=== PATIENT | male | born 1955 | race Hispanic/Latino ===

== ENCOUNTER 2018-02-15 16:05 | Observation (INO) | payer BC ==
[2018-02-15 16:49] LABS: Absolute Lymphocytes (CBC) 2.9 K/uL (0.7-4.9); Absolute Monocytes 0.7 K/uL (0.1-1.3); Absolute Neutrophil 5.5 K/uL (1.8-8.0); Basophils % 0.4 % (0-1.3); Eosinophils % 4.8 % (0-4.4); Hematocrit 42.1 % (39.6-49.0); Lymphocytes % 30.5 % (15.3-44.8); MCH 27.9 pg (27.0-35.0); MCV 84.6 fL (80-100); MPV 7.7 fL (7.6-11.3); Monocytes % 6.9 % (3.3-12.3); RBC Red Blood Cell Count 4.97 M/uL (4.33-5.43)
[2018-02-15 16:51] LABS: Protime INR 0.98
--- NOTE | 2018-02-15 16:54 | RAD REPORT ---
EXAM DESCRIPTION: Jodie Single View02/15/2018 4:47 pm CLINICAL HISTORY: Chest pain COMPARISON: none FINDINGS: The lungs appear clear of acute infiltrate. The heart is normal size IMPRESSION: No acute abnormalities displayed
[2018-02-15 16:59] LABS: Bicarbonate 28 mEq/L (21-31); Glucose Level 212 mg/dL (65-120); Sodium Level 138 mEq/L (135-145)
[2018-02-15 17:06] LABS: ALT/SGPT 24 IU/L (10-60); AST/SGOT 24 IU/L (10-42); Alkaline Phosphatase 64 IU/L (42-121); BUN Blood Urea Nitrogen 11 mg/dL (6-20); Bilirubin Direct 0.1 mg/dL (0-0.2); Bilirubin Total 0.5 mg/dL (0.3-1.2); Glomerular Filtration Rate > 90 mL/min (=/>90); Magnesium 1.9 mg/dL (1.8-2.5); Protein, Total 7.3 g/dL (6.0-8.3)
--- NOTE | 2018-02-15 17:39 | EDPHYS ---
Physician Documentation [facility] Name: Sal Edmonds Age: 63 yrs Sex: Male : 1955 Arrival Date: 02/15/2018 Time: 16:07 Bed 27 Private MD: ED Physician Ravindra Mcgovern HPI: 02/15 16:39 This 63 yrs old Male presents to ER via Wheelchair with complaints of Chest jr8 Pain, Back Pain, Numbness Of Arm. 16:39 The patient or guardian reports chest pain that is located primarily in the substernal jr8 area. Onset: acutely, yesterday. The pain radiates to the left arm. Associated signs and symptoms: Pertinent positives: nausea. The chest pain is described as a heaviness. Duration: The patient or guardian reports multiple episodes. Modifying factors: The symptoms are alleviated by nothing. the symptoms are aggravated by nothing. Severity of pain: At its worst the pain was moderate in the emergency department the pain has improved mildly. The patient has experienced a previous episode. The patient has not recently seen a physician. Historical: - Allergies: 16:12 No Known Allergies; la1 - Home Meds: 17:21 glimepiride 4 mg Oral tab [Active]; atorvastatin 10 mg oral tab once daily [Active]; tl3 metformin 1,000 mg Oral tab 1 tab 2 times per day [Active]; lisinopril 10 mg Oral tab 1 tab once daily [Active]; - PMHx: 16:12 Diabetes - NIDDM; la1 - Immunization history:: Adult Immunizations up to date. - Social history:: Smoking status: Patient/guardian denies using tobacco. ROS: 16:39 Eyes: Negative for injury, pain, redness, and discharge, ENT: Negative for injury, jr8 pain, and discharge, Neck: Negative for injury, pain, and swelling, Respiratory: Negative for shortness of breath, cough, wheezing, and pleuritic chest pain, Back: Negative for injury and pain, MS/Extremity: Negative for injury and deformity, Skin: Negative for injury, rash, and discoloration, Neuro: Negative for headache, weakness, numbness, tingling, and seizure. 16:39 Cardiovascular: Positive for chest pain, Negative for edema, orthopnea, palpitations, paroxysmal nocturnal dyspnea. 16:39 Abdomen/GI: Positive for nausea, Negative for abdominal pain, vomiting, diarrhea, constipation, abdominal cramps, abdominal distension, anorexia, dysphagia, hematemesis, black/tarry stool, rectal pain, rectal bleeding, bowel incontinence, flatulence. Exam: 16:39 Head/Face: Normocephalic, atraumatic. Eyes: Pupils equal round and reactive to light, jr8 extra-ocular motions intact. Lids and lashes normal. Conjunctiva and sclera are non-icteric and not injected. Cornea within normal limits. Periorbital areas with no swelling, redness, or edema. ENT: Nares patent. No nasal discharge, no septal abnormalities noted. Tympanic membranes are normal and external auditory canals are clear. Oropharynx with no redness, swelling, or masses, exudates, or evidence of obstruction, uvula midline. Mucous membranes moist. Neck: Trachea midline, no thyromegaly or masses palpated, and no cervical lymphadenopathy. Supple, full range of motion without nuchal rigidity, or vertebral point tenderness. No Meningismus. Chest/axilla: Normal chest wall appearance and motion. Nontender with no deformity. No lesions are appreciated. Cardiovascular: Regular rate and rhythm with a normal S1 and S2. No gallops, murmurs, or rubs. Normal PMI, no JVD. No pulse deficits. Respiratory: Lungs have equal breath sounds bilaterally, clear to auscultation and percussion. No rales, rhonchi or wheezes noted. No increased work of breathing, no retractions or nasal flaring. Abdomen/GI: Soft, non-tender, with normal bowel sounds. No distension or tympany. No guarding or rebound. No evidence of tenderness throughout. Back: No spinal tenderness. No costovertebral tenderness. Full range of motion. Skin: Warm, dry with normal turgor. Normal color with no rashes, no lesions, and no evidence of cellulitis. MS/ Extremity: Pulses equal, no cyanosis. Neurovascular intact. Full, normal range of motion. Neuro: Awake and alert, GCS 15, oriented to person, place, time, and situation. Cranial nerves II-XII grossly intact. Motor strength 5/5 in all extremities. Sensory grossly intact. Cerebellar exam normal. Normal gait. Vital Signs: 16:12 BP 139 / 68; Pulse 79; Resp 16; Temp 98.1; Pulse Ox 100% on R/A; Weight 108.86 kg; la1 Height 5 ft. 6 in. (167.64 cm); 16:39 BP 100 / 87; Pulse 83; Resp 16; Pulse Ox 95% on R/A; tl3 17:00 BP 143 / 53; Pulse 78; Resp 18; Pulse Ox 96% on R/A; tl3 17:45 BP 134 / 57; Pulse 77; Resp 16; Pulse Ox 96% ; tl3 17:45 BP 132 / 82; Pulse 73; Resp 18; Pulse Ox 96% ; tl3 16:12 Body Mass Index 38.74 (108.86 kg, 167.64 cm) la1 MDM: 16:14 Patient medically screened. jr8 16:39 HEART Score: History: Moderately Suspicious (1), ECG: Normal (0), Age: > 45 and < 65 jr8 years (1), Risk Factors: > or = 3 Risk factors for atherosclerotic disease (2), [Hypercholesterolemia] [Hypertension] [DM] [Obesity] Troponin: < or = 1 x Normal Limit (0). The patient was given aspirin in the Emergency Department. 17:36 Data reviewed: vital signs, nurses notes, lab test result(s), EKG, radiologic studies, jr8 plain films, and as a result, I will admit patient. Counseling: I had a detailed discussion with the patient and/or guardian regarding: the historical points, exam findings, and any diagnostic results supporting the discharge/admit diagnosis, lab results, radiology results, the need for further work-up and treatment in the hospital. 17:38 Physician consultation: Esther Ortega MD was called at 17:38, was contacted at 17:38, jr8 regarding admission, to the telemetry unit. and will see patient in ED. 02/15 16:15 Order name: Basic Metabolic Panel; Complete Time: 17:02/15 16:15 Order name: BNP; Complete Time: 17:10 02/15 16:15 Order name: CBC with Diff; Complete Time: 17:00 02/15 16:15 Order name: LFT's; Complete Time: 17:07 02/15 16:15 Order name: Magnesium; Complete Time: 17:02/15 16:15 Order name: PT-INR; Complete Time: 17:00 02/15 16:15 Order name: Troponin (emerg Dept Use Only); Complete Time: 17:07 8 02/15 16:15 Order name: XRAY Chest (1 view); Complete Time: 16:57 8 02/15 16:15 Order name: EKG; Complete Time: 16:15 8 02/15 16:15 Order name: Cardiac monitoring; Complete Time: 16:30 [facility] 02/15 16:15 Order name: EKG - Nurse/Tech; Complete Time: 16:30 [facility] 02/15 21:41 Order name: Troponin I; Complete Time: 21:43 [facility] 02/15 16:15 Order name: IV Saline Lock; Complete Time: 16:30 8 02/15 16:15 Order name: Labs collected and sent; Complete Time: 16:30 [facility] 02/15 16:15 Order name: O2 Per Protocol; Complete Time: 16:30 8 02/15 16:15 Order name: O2 Sat Monitoring; Complete Time: 16:30 jr8 Administered Medications: 17:25 Drug: Aspirin Chewable Tablet 324 mg Route: PO; tl3 18:55 Follow up: Response: No adverse reaction tl3 18:10 Drug: fentaNYL (PF) 50 mcg Route: IVP; Infused Over: 3 mins; Site: right antecubital; tl3 18:55 Follow up: Response: No adverse reaction; Pain is decreased tl3 Disposition: 02/15/18 17:39 Hospitalization ordered by Esther Ortega for Observation. Preliminary diagnosis is Chest pain, unspecified. - Bed requested for Telemetry/MedSurg (observation). - Status is Observation. tl3 - Condition is Stable. - Problem is new. - Symptoms are unchanged. UTI on Admission? No Addendum: 03/21/2018 19:41 Co-signature as Attending Physician, Ravindra Mcgovern MD I agree with the assessment and k dr plan of care. Signatures: Dispatcher [employer] [facility] Ravindra Mcgovern MD MD kdr Juliana Saunders, RN Sanjeev Velasquez PA PA jr8 Zechariah Wynne RN RN laSuri Lentz RN RN tl3 Corrections: (The following items were deleted from the chart) 02/15 17:37 16:39 HEART Score: History: Moderately Suspicious (1), ECG: Normal (0), Age: > 45 and < jr8 65 years (1), Risk Factors: > or = 3 Risk factors for atherosclerotic disease (2), [Hypercholesterolemia] [Hypertension] [DM] [Obesity] jr8 18:27 17:39 Hospitalization Ordered by Esther Ortega MD for Observation. Preliminary diagnosis iw is Chest pain, unspecified. Bed requested for Telemetry/MedSurg (observation). Status is Observation. Condition is Stable. Problem is new. Symptoms are unchanged. UTI on Admission? No. jr8 21:56 18:27 02/15/2018 17:39 Hospitalization Ordered by Esther Ortega MD for Observation. tl3 Preliminary diagnosis is Chest pain, unspecified. Bed requested for Telemetry/MedSurg (observation). Status is Observation. Condition is Stable. Problem is new. Symptoms are unchanged. UTI on Admission? No. iw
--- NOTE | 2018-02-15 17:39 | ER ---
Nurse's Notes [facility] Name: Sal Edmonds Age: 63 yrs Sex: Male : 1955 Arrival Date: 02/15/2018 Time: 16:07 Bed 27 Private MD: Diagnosis: Chest pain, unspecified Presentation: 02/15 16:11 Presenting complaint: Patient states: I had a pain in my left shoulder that started la1 last night around 2200 and has come around to the front of my chest over time, about an hour and a half ago my left arm "fell asleep". No acute necrological deficits noted. Transition of care: patient was not received from another setting of care. Onset of symptoms was February 15, 2018. Care prior to arrival: None. 16:11 Method Of Arrival: Wheelchair la1 16:11 Acuity: CHEVY 3 la1 Historical: - Allergies: 16:12 No Known Allergies; la1 - Home Meds: 17:21 glimepiride 4 mg Oral tab [Active]; atorvastatin 10 mg oral tab once daily [Active]; tl3 metformin 1,000 mg Oral tab 1 tab 2 times per day [Active]; lisinopril 10 mg Oral tab 1 tab once daily [Active]; - PMHx: 16:12 Diabetes - NIDDM; la1 - Immunization history:: Adult Immunizations up to date. - Social history:: Smoking status: Patient/guardian denies using tobacco. Screenin:39 Abuse screen: Denies threats or abuse. Nutritional screening: No deficits noted. tl3 Tuberculosis screening: No symptoms or risk factors identified. Fall Risk None identified. Assessment: 16:39 General: Appears uncomfortable, well groomed, well developed, well nourished, Behavior tl3 is calm, cooperative, appropriate for age. Pain: Complains of pain in chest, left arm Pain radiates to across chest to arm. Pain: Pain began 1 day ago. Neuro: Oriented to person, place, time, situation, Appropriate for age. Cardiovascular: Heart tones S1 S2 present Capillary refill < 3 seconds in bilateral fingers Rhythm is regular. Respiratory: Airway is patent Respiratory effort is even, unlabored, Breath sounds are clear bilaterally. GI: No signs and/or symptoms were reported involving the gastrointestinal system. : No signs and/or symptoms were reported regarding the genitourinary system. EENT: No signs and/or symptoms were reported regarding the EENT system. Derm: No signs and/or symptoms reported regarding the dermatologic system. 18:00 Reassessment: Patient appears in no apparent distress at this time. No changes from tl3 previously documented assessment. Patient and/or family updated on plan of care and expected duration. Pain level reassessed. Patient is alert, oriented x 3, equal unlabored respirations, skin warm/dry/pink. family at bedside, no c/o pain at this time. 19:17 Reassessment: Patient appears in no apparent distress at this time. No changes from tl3 previously documented assessment. Patient and/or family updated on plan of care and expected duration. Pain level reassessed. Patient is alert, oriented x 3, equal unlabored respirations, skin warm/dry/pink. Vital Signs: 16:12 BP 139 / 68; Pulse 79; Resp 16; Temp 98.1; Pulse Ox 100% on R/A; Weight 108.86 kg; la1 Height 5 ft. 6 in. (167.64 cm); 16:39 BP 100 / 87; Pulse 83; Resp 16; Pulse Ox 95% on R/A; tl3 17:00 BP 143 / 53; Pulse 78; Resp 18; Pulse Ox 96% on R/A; tl3 17:45 BP 134 / 57; Pulse 77; Resp 16; Pulse Ox 96% ; tl3 17:45 BP 132 / 82; Pulse 73; Resp 18; Pulse Ox 96% ; tl3 16:12 Body Mass Index 38.74 (108.86 kg, 167.64 cm) la1 ED Course: 16:07 Patient arrived in ED. as 16:12 Triage completed. la1 16:13 Arm band placed on left wrist. la1 16:14 Sanjeev Craig PA is PHCP. jr8 16:14 Ravindra Mcgovern MD is Attending Physician. jr8 16:16 Suri Cevallos, JENNIFER is Primary Nurse. tl3 16:30 EKG done, by ED staff, reviewed by Sanjeev LYN. jb1 16:39 No apparent distress. tl3 16:39 Patient has correct armband on for positive identification. Placed in gown. Bed in low tl3 position. Call light in reach. Side rails up X2. Adult w/ patient. youth nutritional monitor on. Pulse ox on. NIBP on. Door closed. Warm blanket given. 16:39 No provider procedures requiring assistance completed. Initial lab(s) drawn, by me, tl3 sent to lab. Inserted saline lock: 22 gauge in right antecubital area, using aseptic technique. Blood collected. Patient maintains SpO2 saturation greater than 95% on room air. 16:46 X-ray completed. Portable x-ray completed in exam room. Patient tolerated procedure la2 well. 16:47 XRAY Chest (1 view) In Process Unspecified. EDMS 17:39 Esther Ortega MD is Hospitalizing Provider. jr8 Administered Medications: 17:25 Drug: Aspirin Chewable Tablet 324 mg Route: PO; tl3 18:55 Follow up: Response: No adverse reaction tl3 18:10 Drug: fentaNYL (PF) 50 mcg Route: IVP; Infused Over: 3 mins; Site: right antecubital; tl3 18:55 Follow up: Response: No adverse reaction; Pain is decreased tl3 Outcome: 17:39 Decision to Hospitalize by Provider. jr8 21:56 Patient left the ED. tl3 Signatures: Dispatcher [employer] EDMS Aaron Collazo jbMelanie Nazario Josh, PA PA jr8 Zechariah Wynne, RN RN la1 Rebeca Monterroso la2 Suri Cevallos, RN RN tl3
[2018-02-15] MEDS ORDERED: ASPIRIN 81 MG CHEWABLE TABLET ONE (17:43)
[2018-02-15] MEDS ORDERED: NITROGLYCERIN 0.4 MG/TAB SL PRN (17:44)
[2018-02-15] MEDS ORDERED: MORPHINE 4 MG/ML SYR IV PRN (17:44)
[2018-02-15] MEDS ORDERED: ACETAMINOPHEN 500 MG TAB PO PRN (17:44)
[2018-02-15] MEDS ORDERED: ENOXAPARIN 40 MG/0.4 ML SQ SCH (18:00)
[2018-02-15] MEDS ORDERED: FENTANYL CITR 100 MCG/2 ML ONE (18:40)
[2018-02-15] MEDS ORDERED: ATORVASTATIN 40 MG TAB PO SCH (21:00)
[2018-02-15 21:12] VITALS: BMI 40.6
[2018-02-15] MEDS: METOPROLOL TAR 25 MG TAB PO SCH (21:54)
--- NOTE | 2018-02-15 22:05 | HP ---
Date of Admission: 02/15/2018 Chief Complaint: Chest pain. Primary Care Physician: Ramses Barron MD Code Status: Full. History Of Present Illness: The patient is a 63-year-old male with past medical history of diabetes, hypertension, hyperlipidemia, who was in his usual state of health until day prior to admission when the patient had sudden onset of substernal chest pain which was at rest, moderate, radiating to the left arm, lasted for a few seconds, associated with some nausea but no vomiting. The patient denies any palpitations or shortness of breath. The patient had recurrence of his pain this morning, which became more intense and did not dissipate. The patient tried heating pad, which did not improve his condition. Due to worsening symptoms, the patient came into the ER for further evaluation. No allev iating or aggravating factors. Upon arrival to the ER, his vital signs were stable. He was afebrile . The patient's workup revealed negative troponin level and EKG showed some PACs. The patient was t hen given aspirin, which helped alleviate his pain. The patient was referred for admission. When se en in the ER, the patient was awake, alert, oriented x3, in some mild distress. Past Medical History: Hypertension; hyperlipidemia; diabetes mellitus type 2, non-insulin dependent; obesity. Past Surgical History: Knee surgery on the left in 1982. Allergies: NO KNOWN DRUG ALLERGIES. Medications: Lisinopril 10 mg, glimepiride 4 mg HR, atorvastatin 10 mg, metformin 1 g b.i.d. Family History: Denies any history of premature coronary artery disease in the family. Social History: The patient was a heavy smoker in the past, smoked 1 pack per week for 15 years. Qu it in 2002. The patient drinks occasionally 1-2 beers a month on average. No illicit drug use. The patient is , has good social support. Independent in his activities of daily living. He wor ks driving a forklift. Review of Systems: 11-point system reviewed, negative except as per HPI. Physical Examination: Vital Signs: Blood pressure 139/68, pulse 79, respirations 16, temperature 98.1, pulse ox 100% on ro om air. General: Awake, alert, oriented x3. Some mild distress due to pain. Elderly male, somewhat ill shweta earing. HEENT: Normocephalic, atraumatic. PERRLA. EOMI. Moist mucous membranes. Oropharynx is clear. No rmal dentition. Conjunctiva anicteric. Neck: Supple. No JVD. Trachea midline. CV: S1, S2. Regular rate and rhythm. Peripheral pulses are present bilaterally. No murmurs. Respiratory: Clear to auscultation bilaterally. No wheezing. No stridor. No use of accessory musc les. Gastrointestinal: Abdomen is soft, nontender, nondistended. Positive bowel sounds. No guarding or rigidity. Extremities: No clubbing, cyanosis, or edema. No calf tenderness. Neurologic: Cranial nerves 2 through 12 intact grossly, 5/5 strength bilateral upper and lower extre mities. Sensation intact to light touch. Speech is normal. Skin: No rashes. Normal skin turgor. Psych: Mood is somewhat anxious. Affect is full. Insight and judgment are good. Laboratory Data: Sodium 138, potassium 4, chloride 105, CO2 of 28. BUN 11, creatinine 0.76, glucose 212, calcium 9.4, magnesium 1.9. Troponin less than 0.03. BNP 14. WBC 9.6, H and H 13.9 and 42.1, platelets 384. INR 0.98. Diagnostic Data: Chest x-ray shows no acute abnormalities. Assessment And Plan: A 63-year-old male with; 1.Chest pain, rule out acute coronary syndrome. We will start on chest pain guidelines. Obtain ser ial cardiac enzymes and EKG. We will consult Cardiology. We will obtain echocardiogram. 2.Obesity. 3.Diabetes mellitus type 2, non-insulin dependent. We will start on sliding scale insulin and check hemoglobin A1c. 4.Essential hypertension. Resume home medications. 5.Hyperlipidemia. 6.We will check lipid panel and continue on statin. 7.Gastrointestinal and deep venous thrombosis prophylaxis with PPI and Lovenox. Plan: Admit patient to Med-Surg, [facility] as observation. CHARLIE Voice ID: [id number]
[2018-02-15 23:15] LABS: Urine Appearance CLEAR; Urine Bilirubin NEGATIVE (NEG); Urine Blood NEGATIVE (NEG); Urine Color YELLOW; Urine Glucose NEGATIVE (NEG); Urine Protein NEGATIVE (NEG); Urine Urobilinogen 0.2 mg/dL (0.2-1.0)
[2018-02-15 23:16] LABS: Urine Microscopic Reflex NO UMIC
[2018-02-16 02:25] LABS: Absolute Monocytes 0.9 K/uL (0.1-1.3); Absolute Neutrophil 5.5 K/uL (1.8-8.0); Basophils % 0.4 % (0-1.3); Eosinophils % 4.3 % (0-4.4); Hematocrit 39.8 % (39.6-49.0); Lymphocytes % 36.4 % (15.3-44.8); MCH 28.2 pg (27.0-35.0); MCV 83.8 fL (80-100); MPV 7.7 fL (7.6-11.3); Monocytes % 8.1 % (3.3-12.3); RBC Red Blood Cell Count 4.75 M/uL (4.33-5.43)
[2018-02-16 02:32] LABS: BUN Blood Urea Nitrogen 15 mg/dL (6-20); Bicarbonate 27 mEq/L (21-31); Glomerular Filtration Rate > 90 mL/min (=/>90); Glucose Level 207 mg/dL (65-120); Potassium 3.8 mEq/L (3.6-5.0); Sodium Level 136 mEq/L (135-145)
--- NOTE | 2018-02-16 07:08 | EKG ---
Test Date: 2018-02-15 Test Time: 16:27:07 Student Services Director: CHERIE MEASUREMENT RESULTS: Intervals: Rate: 76 MS: 158 QRSD: 102 QT: 382 QTc: 429 Browning: P: 19 MS: 158 QRS: -19 T: 30 INTERPRETIVE STATEMENTS: Sinus rhythm with premature atrial complexes Otherwise normal ECG No previous ECG available for comparison Electronically Signed On 02-16-18 07:07:36 CDT by Angel Benjamin
[2018-02-16] MEDS ORDERED: D50W 25 GM/50 ML SYRINGE IV PRN (07:57)
[2018-02-16] MEDS ORDERED: GLUCAGON 1 MG/VIAL IM PRN (07:57)
[2018-02-16] MEDS: INSULIN -REGULAR HUMAN 50 UNIT/0.5 ML ML SQ SCH ×4 (07:57→20:42)
[2018-02-16] MEDS: METOPROLOL TAR 25 MG TAB PO SCH ×2 (08:39→20:46)
[2018-02-16] MEDS: ASPIRIN EC 81 MG TAB PO SCH (08:39)
[2018-02-16] MEDS: LISINOPRIL 10 MG TAB PO SCH (08:39)
[2018-02-16] MEDS: GLIMEPIRIDE 2 MG TABLET PO SCH ×2 (08:39→18:07)
[2018-02-16 09:44] LABS: A1c Component 1.09 mg/dL; Hemoglobin A1c 9.4 % (4-6.0)
[2018-02-16] MEDS ORDERED: HEPA 1000U/500MLS 2,000 UNIT/1,000 ML BAG IV ONE (13:25)
[2018-02-16] MEDS ORDERED: LIDOCAINE 1% 20 ML MDV ONE (13:25)
--- NOTE | 2018-02-16 13:26 | CON ---
Chief Complaint: Chest pain. History Of Present Illness: Mr. Cam has been having chest pain since Friday, 2 days ago. It is intermittent, feels like heaviness, pressure in upper part of his chest, some discomfort in the left arm as well. Presently he feels well. Since being in the hospital, he has had a troponin that is n ormal and one that is abnormal at 0.04. He passed a stress test several years ago. Has not had any cardiology follow up since then. He has underlying diabetes, hypertension, and dyslipidemia. Medications: Metformin, lisinopril atorvastatin, and glimepiride. Allergies: HE HAS NO ALLERGIES. Social History: He was a cigarette smoker, but quit in 2002. No history of vascular disease. No hi story of bypass or stents. Physical Examination: General: He is 5 feet 6 inches, 251 pounds. HEENT: Normal. Lungs: Clear. Cardiac: Normal. Abdomen: Soft. Extremities: Normal. No cyanosis, clubbing, or edema. Distal pulses normal. Neurologic: Within normal limits. His electrocardiogram shows premature atrial complexes. Otherwise, it is normal. Impression: Mr. Tutu Edmonds has unstable angina. I have recommended a cardiac cath as the diag nostic test of choice. Of course, we will be ready to put in a stent if he needs it. The patient seems to understand the procedure, its potential benefits, indications, risks, and agrees to proceed. YAHAIRA Voice ID: [id number] Report ID: [id number]
[2018-02-16] MEDS ORDERED: HEPARIN 5000 UNIT/ML 1 ML VIAL ONE (13:41)
[2018-02-16] MEDS ORDERED: NA CHLORIDE 0.9% 500 ML ONE (13:41)
[2018-02-16] MEDS ORDERED: FENTANYL CITR 100 MCG/2 ML ONE (13:42)
[2018-02-16] MEDS ORDERED: NA CHLORIDE 0.9% 50 ML ONE (13:42)
[2018-02-16] MEDS ORDERED: MIDAZOLAM HCL 2 MG/2 ML INJ ONE (13:42)
[2018-02-16] MEDS ORDERED: NICARDIPINE HCL 25 MG/10 ML IV ONE (13:42)
[2018-02-16] MEDS ORDERED: ATROPINE SULF 1 MG/10 ML SYR IV ONE (13:42)
[2018-02-16] MEDS ORDERED: PRASUGREL (EFFIENT) 10 MG TAB ONE (15:14)
--- NOTE | 2018-02-16 15:42 | PN ---
Date of Progress Note: 02/16/2018 Subjective: The patient is seen and examined. Chart reviewed and case discussed with RN and Dr. Julio adams. The patient is going for cardiac catheterization today. He states his chest pain has resolved since yesterday. Review of Systems: Negative except as above. Medications: Reviewed. Physical Examination: Vital Signs: Temperature 97.9, heart rate 71, blood pressure 122/62, respirations 16, O2 95% on room air. General: Awake, alert, oriented, no acute distress. Elderly male, morbidly obese, BMI 40. CV: S1, S2. No murmurs. Regular rate and rhythm. Peripheral pulses present. Respiratory: Clear to auscultation bilaterally. No wheezing. Gastrointestinal: Abdomen is soft, nontender, nondistended. Obese. Positive bowel sounds. Extremities: No clubbing, cyanosis, or edema. Neurologic: Nonfocal. Laboratory Data: Sodium 136, potassium 3.8, chloride 103, CO2 27, BUN 15, creatinine 0.61, glucose 2 07. Hemoglobin A1c 9.4, calcium 9.5. Troponin 0.03, 0.03, 0.04. WBC 10.9, H and H 13.4 and 39.8, p latelets 358. Triglycerides 148, cholesterol 142, LDL 78, HDL 34. UA negative. Assessment And Plan: A 63-year-old male with: 1.Unstable angina. Troponin elevated at 0.04. The patient is going for cardiac catheterization thi s afternoon. Appreciate Dr. Benjamin' input. We will continue chest pain guidelines. 2.Morbid obesity, body mass index 40. 3.Diabetes mellitus type 2 with hyperglycemia, noninsulin dependent. A1c is 9.5%, uncontrolled. 4.Essential hypertension, stable. 5.Hyperlipidemia, on statin. 6.Gastrointestinal and deep venous thrombosis prophylaxis with PPI and Lovenox. SA/MODL Voice ID: [id number] Report ID: [id number]
[2018-02-16] MEDS ORDERED: ATORVASTATIN 80 MG TAB PO SCH (21:00)
--- NOTE | 2018-02-16 22:18 | OP ---
Surgeon: Angel Benjamin MD Procedures: Left heart catheterization, coronary left ventricular angiography, percutaneous coronary interventions, stents in the mid left anterior descending artery and distal left anterior descending artery; all successful without complications. Procedure Findings: The patient has normal ejection fraction. His coronary arteries were significan t for high-grade stenosis in the mid LAD and a 70% stenosis in the distal LAD. The other arteries we re free of disease. His ejection fraction was normal. Left ventricular end-diastolic pressure was n ormal. All of the other pressures we measured were normal. At the end of the stenting procedure, claudia th lesions were less than 0% stenosis. The mid LAD stent was a 2.75 x 16 Synergy. The distal LAD st ent was a 2.75 x 12 Synergy. Residual stenosis 0%. Procedure In Detail: The patient had unstable angina symptoms. His EKG was normal. Troponin was ba rely elevated. We brought him to the cardiac pathology laboratory aides teacher for diagnostic and treatment purposes. He gav e informed consent. He was prepared and draped in the usual sterile fashion. Right radial approach was used. The skin over the right radial artery was anesthetized using 1% lidocaine. The artery was entered using a 21-gauge needle, and a 0.021-inch diameter guidewire was used to cannulate the arter y. This allowed us to place a sheath through these in the modified Seldinger technique. A 6-Kinyarwanda Terumo radial sheath was used. The sheath was flushed. Radial cocktail was given. It consisted of nicardipine, heparin, and nitroglycerin. We were able to guide a TIG catheter into the ascending aor ta. We used a Terumo Glidewire with a short radius J-tip. We used the same catheter to angiogram claudia th coronary arteries and the left ventricle. At the end of the procedure, after reviewing films, it was recommended that we put stents in the LAD artery. We removed the diagnostic catheter over an exc hange length wire and used the same wire to place a guide catheter; an Ikari left 3.5 with side holes . It was directed into the left main ostium and gave good support. The coronary guidewire was a Cou gar 0.014 inch diameter wire, successfully crossed the lesion and was pre-dilated with a 2.5 x 15 Maria Luz rge balloon. We elected to use 2.75 mm diameter stents. We elected to treat both the mid LAD and th e distal LAD. Both stents were deployed at 11 atmospheres. The angiographic result was excellent. There was no evidence of any complication by symptoms or arrhythmia or ST changes, or angiography. E xcellent angiographic result was obtained after we removed all the guidewires. Then, the guiding cat heter was removed over a J-wire. During the stent procedure, he had received Angiomax. The activate d clotting time was demonstrated to be over 350 seconds. During the procedure, Angiomax was turned o ff as soon as we did our final angiogram. The arteriotomy was closed using a TR band once the sheath was removed. There were no complications from the procedure. NO/JOE Voice ID: [id number] Report ID: [id number]
[2018-02-16 22:40] VITALS: O2SAT 93
[2018-02-17 05:22] LABS: Absolute Lymphocytes (CBC) 4.1 K/uL (0.7-4.9); Absolute Neutrophil 5.9 K/uL (1.8-8.0); Basophils % 0.1 % (0-1.3); Eosinophils % 4.5 % (0-4.4); Hematocrit 40.6 % (39.6-49.0); Lymphocytes % 35.7 % (15.3-44.8); MCH 28.1 pg (27.0-35.0); MCV 84.5 fL (80-100); MPV 7.8 fL (7.6-11.3); Monocytes % 8.4 % (3.3-12.3)
[2018-02-17 05:39] LABS: BUN Blood Urea Nitrogen 12 mg/dL (6-20); Bicarbonate 28 mEq/L (21-31); Glomerular Filtration Rate > 90 mL/min (=/>90); Glucose Level 133 mg/dL (65-120); Potassium 3.8 mEq/L (3.6-5.0); Sodium Level 137 mEq/L (135-145)
[2018-02-17] MEDS: INSULIN -REGULAR HUMAN 50 UNIT/0.5 ML ML SQ SCH (07:30)
[2018-02-17] MEDS: GLIMEPIRIDE 2 MG TABLET PO SCH (08:16)
[2018-02-17] MEDS: LISINOPRIL 10 MG TAB PO SCH (08:16)
[2018-02-17] MEDS: ASPIRIN EC 81 MG TAB PO SCH (08:16)
[2018-02-17] MEDS: METOPROLOL TAR 25 MG TAB PO SCH (08:16)
[2018-02-17 08:56] VITALS: BP 162/66; TEMP 97.6
[2018-02-17] MEDS ORDERED: PRASUGREL (EFFIENT) 10 MG TAB PO SCH (09:00)
--- NOTE | 2018-02-17 12:13 | PN ---
Subjective: Mr. Cam had stents in his LAD yesterday, 2 separate stents. The culprit lesion was m id LAD. There was invert distal LAD lesion, also stented. He will be discharged today on atorvastat in 80, aspirin 81, Effient 10, lisinopril 10, metoprolol 25 b.i.d. We will continue to take glimepir guillermo. He will start taking metformin tomorrow, not take it today and follow up with me in 2 weeks in the office, he is to call. I have recommended he not return to work until Friday the 23 of February. NO/JOE Voice ID: [id number] Report ID: [id number]
--- NOTE | 2018-02-18 04:55 | DS ---
Date of Discharge: 02/17/2018 Consultants: Angel Benjamin MD Procedures: Cardiac catheterization on 02/16/[address] Benjamin with 2 stents in his LAD. Admitting Diagnoses: 1.Chest pain. 2.Morbid obesity, body mass index 40. 3.Diabetes mellitus type 2, noninsulin dependent with hyperglycemia. 4.Essential hypertension. 5.Hyperlipidemia. Discharge Diagnoses: 1.Unstable angina, status post cardiac catheterization and stent in left anterior descending artery. 2.Coronary artery disease, status post stent. 3.Morbid obesity, body mass index of 40. 4.Diabetes mellitus type 2 with hyperglycemia, non-insulin dependent. Hemoglobin A1c 9.5%, uncontro lled. 5.Essential hypertension, stable. 6.Hyperlipidemia, on statin. Hospital Course: The patient is a 63-year-old male, who came in to the hospital with chest pain. e patient was started on chest pain guidelines. His cardiac enzymes showed 0.03, 0.03, and 0.04. Ca rdiology was consulted and Dr. Benjamin recommended heart catheterization. The patient was taken for h eart catheterization and was found to have coronary artery disease requiring stent in the LAD x2. e patient tolerated the procedure well. His chest pain had resolved. He did well after the procedur e. The patient was started on Effient. He was instructed to hold his metformin for 48 hours post ca rdiac catheterization to avoid kidney issues. The patient's EF was normal. The patient was then gabriel ared for discharge from Cardiology standpoint. Discharge Condition: Stable. Activity: As tolerated. Return to work no earlier than 02/23/2018. Diet: Heart healthy. Followup: Follow up with primary care physician, Dr. Barron, in 2-3 days. Follow up with cardi ologist, Dr. Benjamin, in 2 weeks. Return to ER for worsening condition. Medications: As per medication reconciliation list. Discharge Physical Examination: General: Awake, alert, oriented, in no acute distress. CV: S1, S2. No murmurs. Respiratory: Moving air well bilaterally. No wheezing. Abdomen: Abdomen is soft, nontender, nondistended. Positive bowel sounds. Extremities: No clubbing, cyanosis, or edema. Skin: Radial cath site clean, dry, intact. No hematoma. Peripheral pulses present. Neurologic: Nonfocal. SA/MODL Voice ID: [id number] Report ID: [id number]
== END 2018-02-17 10:20 | disposition home or self-care (01) ==
LOC: ER 16:05 → ERHOLD 17:44 → 2ND 19:23
PROVIDERS: ADMIT Family Medicine; ATTEND Family Medicine
PROC: 4A023N7 Measurement of Cardiac Sampling and Pressure, Left Heart, Percutaneous Approach (ICD-10-PCS; principal; 2018-02-16)
PROC: B201YZZ Plain Radiography of Multiple Coronary Arteries using Other Contrast (ICD-10-PCS; 2018-02-16)
PROC: B205YZZ Plain Radiography of Left Heart using Other Contrast (ICD-10-PCS; 2018-02-16)
PROC: 027035Z Dilation of Coronary Artery, One Artery with Two Drug-eluting Intraluminal Devices, Percutaneous Approach (ICD-10-PCS; 2018-02-16)
DX: I25.110 Atherosclerotic heart disease of native coronary artery with unstable angina pectoris (principal); I10 Essential (primary) hypertension; E66.01 Morbid (severe) obesity due to excess calories; Z68.41 Body mass index [BMI] 40.0-44.9, adult; E11.65 Type 2 diabetes mellitus with hyperglycemia; E78.5 Hyperlipidemia, unspecified
CPT/HCPCS: 36415; 71045; 80048; 80061; 80076; 81003; 82962; 83036; 83735; 83880; 84484; 85025; 85347; 85610; 92928; 93005; 93458; 94760; 96374; 99285; C1725; C1893; G0378; J0583; J1644; J1650; J2250; J3010

== ENCOUNTER 2018-04-14 00:57 | Emergency (ER) | payer BC ==
[2018-04-14 01:57] LABS: Absolute Lymphocytes (CBC) 2.2 K/uL (0.7-4.9); Absolute Monocytes 0.7 K/uL (0.1-1.3); Absolute Neutrophil 8.7 K/uL (1.8-8.0); Basophils % 0.3 % (0-1.3); Eosinophils % 0.6 % (0-4.4); Hematocrit 39.3 % (39.6-49.0); Lymphocytes % 18.6 % (15.3-44.8); MCH 28.1 pg (27.0-35.0); MCV 85.7 fL (80-100); MPV 8.4 fL (7.6-11.3); Monocytes % 5.6 % (3.3-12.3); RBC Red Blood Cell Count 4.59 M/uL (4.33-5.43)
[2018-04-14 02:02] LABS: Bicarbonate 27 mEq/L (21-31); Glucose Level 115 mg/dL (65-120); Lipase 24 U/L (22-51); Potassium 3.5 mEq/L (3.6-5.0); Sodium Level 138 mEq/L (135-145)
[2018-04-14 02:08] LABS: ALT/SGPT 20 IU/L (10-60); AST/SGOT 19 IU/L (10-42); Albumin 4.3 g/dL (3.2-5.5); Alkaline Phosphatase 60 IU/L (42-121); Amylase Level 62 U/L (28-100); BUN Blood Urea Nitrogen 19 mg/dL (6-20); Bilirubin Direct 0.1 mg/dL (0-0.2); Bilirubin Total 0.8 mg/dL (0.3-1.2); Protein, Total 6.9 g/dL (6.0-8.3)
[2018-04-14] MEDS ORDERED: MORPHINE 4 MG/ML SYR ONE (02:11)
[2018-04-14] MEDS ORDERED: ONDANSETRON 4 MG/2 ML VIAL ONE (02:11)
[2018-04-14] MEDS ORDERED: METRONIDAZOLE 500mg IVPB 500 MG/100 ML BAG IV ONE (02:20)
[2018-04-14] MEDS ORDERED: ACETAMINOPHEN 500 MG TAB ONE (02:20)
[2018-04-14 02:21] LABS: Urine Blood 3+ (NEG); Urine Glucose NEGATIVE (NEG); Urine Protein 2+ (NEG); Urine Specific Gravity 1.015 (1.005-1.030); Urine pH >8.5 (5.0-7.0)
[2018-04-14] MEDS ORDERED: CIPROFLOXACIN HCL 500 MG TAB ONE (02:21)
[2018-04-14 02:54] LABS: Urine Culture Reflex Order NOT NEEDED
[2018-04-14 02:55] LABS: Urine Bacteria <20 /HPF (NONE SEEN); Urine RBC TNTC /HPF (NONE SEEN)
[2018-04-14 02:56] LABS: Calcium Oxalate Crystals- Ur FEW (NONE SEEN)
--- NOTE | 2018-04-14 03:42 | ER ---
Nurse's Notes [facility] Name: Sal Edmonds Age: 63 yrs Sex: Male : 1955 Arrival Date: 04/14/2018 Time: 01:01 Bed 7 Private MD: Michelle Barron R Diagnosis: Left 4 mm kidney stone, renal colic, hematuria, left flank pain Presentation: 04/14 01:17 Presenting complaint: Patient states: of abdominal pain on the left side radiating to rv the back/flank that started just this afternoon. he also noticed blood in urine. pain scale of 7/10. Transition of care: patient was not received from another setting of care. Onset of symptoms was April 13, 2018 at 21:00. Risk Assessment: Do you want to hurt yourself or someone else? Patient reports no desire to harm self or others. Initial Sepsis Screen: Does the patient meet any 2 criteria? No. Patient's initial sepsis screen is negative. Does the patient have a suspected source of infection? No. Patient's initial sepsis screen is negative. Care prior to arrival: None. 01:17 Method Of Arrival: Ambulatory rv 01:17 Acuity: CHEVY 3 rv Historical: - Allergies: 01:26 No Known Allergies; rv - Home Meds: 01:26 lisinopril 10 mg Oral tab 1 tab once daily [Active]; prasugrel oral 10 mg oral 1 tab rv once daily [Active]; metformin 1,000 mg Oral tab 1 tab 2 times per day [Active]; atorvastatin 80 mg oral tab 1 tab once daily [Active]; metoprolol tartrate 25 mg Oral tab 1 tab 2 times per day [Active]; - PMHx: 01:26 Diabetes - NIDDM; Hypertension; CAD; rv - PSHx: 01:26 left knee surgery; rv - Immunization history:: Flu vaccine is not up to date. - Social history:: Smoking status: Patient/guardian denies using tobacco, the patient reports quitting approximately 15 years ago. - Ebola Screening: : Patient negative for fever greater than or equal to 101.5 degrees Fahrenheit, and additional compatible Ebola Virus Disease symptoms Patient denies exposure to infectious person Patient denies travel to an Ebola-affected area in the 21 days before illness onset. Screenin:44 Abuse screen: Denies threats or abuse. Denies injuries from another. Nutritional mg2 screening: No deficits noted. 03:07 Tuberculosis screening: No symptoms or risk factors identified. Fall Risk None rv identified. Assessment: 01:30 General: Appears uncomfortable, Behavior is calm, cooperative, appropriate for age. rv Pain: Complains of pain in left low back, left mid back and abdomen. Neuro: Level of Consciousness is awake, alert, obeys commands, Oriented to person, place, time, situation. Cardiovascular: Capillary refill < 3 seconds. Respiratory: Airway is patent. GI: Abdomen is round distended. : Reports bloody urine. EENT: No signs and/or symptoms were reported regarding the EENT system. Derm: Skin is intact. Musculoskeletal: No signs and/or symptoms reported regarding the musculoskeletal system. Vital Signs: 01:29 BP 127 / 68; Pulse 64; Resp 18; Temp 100.4; Pulse Ox 97% ; rv 02:15 BP 123 / 54; Pulse 62; Resp 17; Pulse Ox 96% on R/A; rv 02:59 BP 122 / 53; Pulse 60; Resp 16; Pulse Ox 92% on R/A; bp 03:03 Temp 99.2; rv 03:57 BP 112 / 68; Pulse 60; Resp 17; Pulse Ox 94% ; rv ED Course: 01:01 Patient arrived in ED. al2 01:02 Michelle Barron MD is Private Physician. al2 01:04 Ravindra Mcgovern MD is Attending Physician. kdr 01:22 Triage completed. rv 01:35 Inserted saline lock: 20 gauge in right antecubital area, using aseptic technique. lp1 Blood collected. 01:35 First set of blood cultures drawn. lp1 01:[address] via wheelchair. eh 01:48 CT Stone Protocol In Process Unspecified. EDMS 01:50 CT completed. Patient tolerated procedure well. Patient moved back from CT. eh 01:52 Urine Culture Sent. rv 02:16 Inserted saline lock:. rv 02:16 Bladder scan completed. zero residual. rv 02:25 Enrike Upton RN is Primary Nurse. mg2 03:07 Arm band placed on left wrist. rv 03:08 Patient has correct armband on for positive identification. Placed in gown. Bed in low rv position. Call light in reach. Side rails up X 1. Adult w/ patient. Pulse ox on. NIBP on. 03:40 Michelle Barron MD is Referral Physician. kdr 03:58 No provider procedures requiring assistance completed. IV discontinued, intact, rv bleeding controlled, No redness/swelling at site. Pressure dressing applied. Administered Medications: 02:14 Drug: morphine 4 mg Route: IVP; Site: right antecubital; rv 03:05 Follow up: Response: No adverse reaction; Pain is decreased rv 02:14 Drug: Zofran 4 mg Route: IVP; Site: right antecubital; rv 03:05 Follow up: Response: No adverse reaction rv 02:26 Drug: Flagyl 500 mg Volume: 100 ml; Route: IVPB; Rate: 200 ml/hr; Infused Over: 30 mg2 mins; Site: right antecubital; 03:04 Follow up: Response: No adverse reaction rv 02:26 Drug: Cipro 500 mg Route: PO; mg2 03:04 Follow up: Response: No adverse reaction rv 02:26 Drug: Tylenol 1000 mg Route: PO; mg2 03:04 Follow up: Response: No adverse reaction; Temperature is decreased; Pain is decreased rv Point of Care Testing: Blood Glucose: 01:42 Blood Glucose: 101 mg/dL; lp1 Ranges: Outcome: 03:42 Discharge ordered by . kdr 03:58 Discharged to home ambulatory. rv 03:58 Condition: stable 03:58 Discharge instructions given to patient. 03:59 Patient left the ED. rv Signatures: Dispatcher [employer] EDMS Ravindra Mcgovern MD MD kdr Akil Farley Laura RN RN lp1 Herbert Loyd RN RN Sherron Villanueva alEnrike Medina, JENNIFER RN mg2 Juan A Kearns RN RN rv Corrections: (The following items were deleted from the chart) 03:03 01:29 BP 127 / 68; Pulse 64bpm; Resp 18bpm; Pulse Ox 97%; Temp 104F; rv rv
--- NOTE | 2018-04-14 03:42 | EDPHYS ---
Physician Documentation [facility] Name: Sal Edmonds Age: 63 yrs Sex: Male : 1955 Arrival Date: 04/14/2018 Time: 01:01 Bed 7 Private MD: Michelle Barron R ED Physician Ravindra Mcgovern HPI: 04/14 01:38 This 63 yrs old Male presents to ER via Ambulatory with complaints of Urinary kdr Problem, Urinary Retention. 01:38 The patient presents with urinary symptoms, hesitancy to initiate urine stream, kdr retention, unable to void. Onset: The symptoms/episode began/occurred gradually, today. Modifying factors: The symptoms are alleviated by nothing, the symptoms are aggravated by movement. Associated signs and symptoms: Pertinent positives: abdominal pain, diarrhea, dysuria, fever, hematuria, nausea, vomiting, Pertinent negatives:. Severity of symptoms: At their worst the symptoms were mild, moderate, in the emergency department the symptoms are unchanged. The patient has not experienced similar symptoms in the past. The patient has not recently seen a physician. The patient states that he was having left sided abdominal pain, n/v since yesterday. Also, with hematuria and urinary retention. Historical: - Allergies: 01:26 No Known Allergies; rv - Home Meds: 01:26 lisinopril 10 mg Oral tab 1 tab once daily [Active]; prasugrel oral 10 mg oral 1 tab rv once daily [Active]; metformin 1,000 mg Oral tab 1 tab 2 times per day [Active]; atorvastatin 80 mg oral tab 1 tab once daily [Active]; metoprolol tartrate 25 mg Oral tab 1 tab 2 times per day [Active]; - PMHx: 01:26 Diabetes - NIDDM; Hypertension; CAD; rv - PSHx: 01:26 left knee surgery; rv - Immunization history:: Flu vaccine is not up to date. - Social history:: Smoking status: Patient/guardian denies using tobacco, the patient reports quitting approximately 15 years ago. - Ebola Screening: : Patient negative for fever greater than or equal to 101.5 degrees Fahrenheit, and additional compatible Ebola Virus Disease symptoms Patient denies exposure to infectious person Patient denies travel to an Ebola-affected area in the 21 days before illness onset. ROS: 01:38 Constitutional: Negative for chills, and weight loss - he has had fever Eyes: Negative kdr for injury, pain, redness, and discharge, Neck: Negative for injury, pain, and swelling, Cardiovascular: Negative for chest pain, palpitations, and edema, Respiratory: Negative for shortness of breath, cough, wheezing, and pleuritic chest pain, Back: Negative for injury and pain, MS/Extremity: Negative for injury and deformity, Skin: Negative for injury, rash, and discoloration, Neuro: Negative for headache, weakness, numbness, tingling, and seizure activity. Psych: Negative for depression, anxiety, suicide ideation, homicidal ideation, and hallucinations, Allergy/Immunology: Negative for hives, rash, and allergies, Endocrine: Negative for neck swelling, polydipsia, polyuria, polyphagia, and marked weight changes, Hematologic/Lymphatic: Negative for swollen nodes, abnormal bleeding, and unusual bruising. 01:38 Abdomen/GI: Positive for abdominal pain, nausea, vomiting, and diarrhea, diarrhea, abdominal cramps, Negative for constipation, abdominal distension, anorexia, dysphagia, hematemesis, black/tarry stool, rectal pain, rectal bleeding. Exam: 03:36 Constitutional: This is a well developed, well nourished patient who is awake, alert, kdr and in no acute distress. Head/Face: Normocephalic, atraumatic. Eyes: Pupils equal round and reactive to light, extra-ocular motions intact. Lids and lashes normal. Conjunctiva and sclera are non-icteric and not injected. Cornea within normal limits. Periorbital areas with no swelling, redness, or edema. Neck: Trachea midline, no thyromegaly or masses palpated, and no cervical lymphadenopathy. Supple, full range of motion without nuchal rigidity, or vertebral point tenderness. No Meningismus. Chest/axilla: Normal chest wall appearance and motion. Nontender with no deformity. No lesions are appreciated. Cardiovascular: Regular rate and rhythm with a normal S1 and S2. No gallops, murmurs, or rubs. Normal PMI, no JVD. No pulse deficits. Respiratory: Lungs have equal breath sounds bilaterally, clear to auscultation and percussion. No rales, rhonchi or wheezes noted. No increased work of breathing, no retractions or nasal flaring. Back: No spinal tenderness. No costovertebral tenderness. Full range of motion. Skin: Warm, dry with normal turgor. Normal color with no rashes, no lesions, and no evidence of cellulitis. MS/ Extremity: Pulses equal, no cyanosis. Neurovascular intact. Full, normal range of motion. Neuro: Awake and alert, GCS 15, oriented to person, place, time, and situation. Cranial nerves II-XII grossly intact. Motor strength 5/5 in all extremities. Sensory grossly intact. Cerebellar exam normal. Normal gait. Psych: Awake, alert, with orientation to person, place and time. Behavior, mood, and affect are within normal limits. 03:36 Abdomen/GI: Inspection: obese Bowel sounds: active, all quadrants, Palpation: soft, mild abdominal tenderness, in the left upper quadrant and left lower quadrant, mass, is not appreciated, rebound tenderness, is not appreciated. Vital Signs: 01:29 BP 127 / 68; Pulse 64; Resp 18; Temp 100.4; Pulse Ox 97% ; rv 02:15 BP 123 / 54; Pulse 62; Resp 17; Pulse Ox 96% on R/A; rv 02:59 BP 122 / 53; Pulse 60; Resp 16; Pulse Ox 92% on R/A; bp 03:03 Temp 99.2; rv 03:57 BP 112 / 68; Pulse 60; Resp 17; Pulse Ox 94% ; rv MDM: 03:36 Data reviewed: vital signs, nurses notes, lab test result(s), radiologic studies. kdr Counseling: I had a detailed discussion with the patient and/or guardian regarding: the historical points, exam findings, and any diagnostic results supporting the discharge/admit diagnosis, lab results, radiology results, the need for outpatient follow up. 03:42 Patient medically screened. [facility] 04/14 01:30 Order name: Amylase, Serum; Complete Time: 02:15 kdr 04/14 01:30 Order name: Basic Metabolic Panel; Complete Time: 02:15 kdr 04/14 01:30 Order name: CBC with Diff; Complete Time: 02:57 kdr 04/14 01:30 Order name: Creatinine for Radiology; Complete Time: 02:15 kdr 04/14 01:30 Order name: Hepatic Function; Complete Time: 02:15 kdr 04/14 01:30 Order name: Lipase; Complete Time: 02:15 kdr 04/14 01:30 Order name: Urine Microscopic Only; Complete Time: 02:57 kdr 04/14 01:30 Order name: Blood Culture Adult (2) kdr 04/14 01:30 Order name: Urine Culture kdr 04/14 01:30 Order name: CT Stone Protocol kdr 04/14 01:54 Order name: Urine Dipstick--Ancillary (enter results); Complete Time: 02:57 eb 04/14 01:30 Order name: IV Saline Lock; Complete Time: 01:42 kdr 04/14 01:30 Order name: Labs collected and sent; Complete Time: 01:42 kdr 04/14 01:30 Order name: Urine Dipstick-Ancillary (obtain specimen); Complete Time: 01:53 kdr Administered Medications: 02:14 Drug: morphine 4 mg Route: IVP; Site: right antecubital; rv 03:05 Follow up: Response: No adverse reaction; Pain is decreased rv 02:14 Drug: Zofran 4 mg Route: IVP; Site: right antecubital; rv 03:05 Follow up: Response: No adverse reaction rv 02:26 Drug: Flagyl 500 mg Volume: 100 ml; Route: IVPB; Rate: 200 ml/hr; Infused Over: 30 mg2 mins; Site: right antecubital; 03:04 Follow up: Response: No adverse reaction rv 02:26 Drug: Cipro 500 mg Route: PO; mg2 03:04 Follow up: Response: No adverse reaction rv 02:26 Drug: Tylenol 1000 mg Route: PO; mg2 03:04 Follow up: Response: No adverse reaction; Temperature is decreased; Pain is decreased rv Point of Care Testing: Blood Glucose: 01:42 Blood Glucose: 101 mg/dL; lp1 Ranges: Critical Glucose Levels:Adult <50 mg/dl or >400 mg/dl <40 mg/dl or >180 mg/dl Disposition: 04/14/18 03:42 Discharged to Home. Impression: Left 4 mm kidney stone, renal colic, hematuria, left flank pain. - Condition is Stable. - Discharge Instructions: Hematuria, Adult, Kidney Stones, [id number], Flank Pain, [id number], Fever, Adult, [id number]. - Prescriptions for Cipro 500 mg Oral Tablet - take 1 tablet by ORAL route every 12 hours for 3 days; 6 tablet. Zofran 4 mg Oral Tablet - take 1 tablet by ORAL route every 12 hours As needed; 6 tablet. Flomax 0.4 mg Oral Capsule, Sust. Release 24 hr - take 1 capsule by ORAL route once daily 1/2 hour following the same meal each day; 15 capsule. Tramadol 50 mg Oral Tablet - take 1 tablet by ORAL route every 8 hours as needed; 12 tablet. - Medication Reconciliation Form, Thank You Letter, Antibiotic Education, Prescription Opioid Use, Work release form form. - Follow up: Michelle Barron MD; When: 1 - 2 days; Reason: If symptoms return, Further diagnostic work-up, Recheck today's complaints, Continuance of care, Re-evaluation by your physician. - Problem is new. - Symptoms are resolved. Signatures: Dispatcher [employer] EDMS Ravindra Mcgovern MD MD [facility] Enrike Upton RN RN mg2 Juan A Kearns RN RN rv Corrections: (The following items were deleted from the chart) 03:59 03:42 04/14/2018 03:42 Discharged to Home. Impression: Left 4 mm kidney stone, renal rv colic, hematuria, left flank pain. Condition is Stable. Forms are Medication Reconciliation Form, Thank You Letter, Antibiotic Education, Prescription Opioid Use. Follow up: Michelle Barron; When: 1 - 2 days; Reason: If symptoms return, Further diagnostic work-up, Recheck today's complaints, Continuance of care, Re-evaluation by your physician. Problem is new. Symptoms are resolved. kdr
[2018-04-14 04:13] VITALS: TEMP 99.2
[2018-04-14 04:14] VITALS: BP 112/68; O2SAT 94
--- NOTE | 2018-04-14 08:46 | RAD REPORT ---
EXAM DESCRIPTION: CT - Stone Protocol - 04/14/2018 3:14 am CLINICAL HISTORY: Abdominal pain. Hematuria and left flank pain COMPARISON: None. TECHNIQUE: Computed axial tomography of the abdomen pelvis was obtained without oral or IV contrast. Lack of IV and oral contrast limits evaluation of solid organs, bowel, and vessels. Coronal reformat jean-pierre images were obtained and reviewed. A preliminary report was gender by virtual radiologic and rev iewed prior to dictation All CT scans are performed using dose optimization technique as appropriate and may include automated exposure control or mA/KV adjustment according to patient size. FINDINGS: Mild left hydronephrosis is seen. A left renal calculus is not noted. A 4.5 millimeter ruth culus Hounsfield unit 744 is present within the left ureteral vesicle junction. A nonobstructing right renal calculus measures 8 millimeters Hounsfield unit 620 A tiny lesion within the liver is too small to characterize but probably is benign Spleen, pancreas and adrenals appear grossly normal There is no evidence of diverticulitis. The appendix appears normal. The prostate gland is mildly to moderately enlarged. Spondylosis involves lumbar spine resulting spinal stenosis. IMPRESSION: 4.5 millimeter left ureteral vesicle junction calculus resulting in mild left hydronephr osis
== END 2018-04-14 03:59 | disposition home or self-care (01) ==
LOC: ER 00:57
DX: N20.0 Calculus of kidney (principal); N23 Unspecified renal colic; R10.9 Unspecified abdominal pain; I10 Essential (primary) hypertension; E11.9 Type 2 diabetes mellitus without complications
CPT/HCPCS: 36415; 74176; 76377; 80048; 80076; 81003; 81015; 82150; 82962; 83690; 85025; 87040; 87086; 87088; 96374; 96375; 99284; J2405

== ENCOUNTER 2019-11-13 05:42 | Emergency (ER) | payer BC ==
--- NOTE | 2019-11-13 08:02 | ER ---
Nurse's Notes [facility] Name: Sal Edmonds Age: 64 yrs Sex: Male : 1955 Arrival Date: 11/13/2019 Time: 05:44 Bed 20 Private MD: Michelle Barron R Diagnosis: Pain in left knee Presentation: 11/13 06:02 Presenting complaint: Patient states: Left knee pain that radiates down leg. Pain comes tl2 on suddenly and keeps him up at night. Transition of care: patient was not received from another setting of care. Onset of symptoms was November 13, 2019. Risk Assessment: Do you want to hurt yourself or someone else? Patient reports no desire to harm self or others. Initial Sepsis Screen: Does the patient meet any 2 criteria? No. Patient's initial sepsis screen is negative. Does the patient have a suspected source of infection? No. Patient's initial sepsis screen is negative. Care prior to arrival: None. 06:02 Method Of Arrival: Ambulatory tl2 06:02 Acuity: CHEVY 4 tl2 Triage Assessment: 06:04 General: Appears in no apparent distress. Behavior is calm, cooperative, appropriate tl2 for age. Pain: Complains of pain in left knee Pain radiates to left rehman Quality of pain is described as throbbing, Pain began suddenly, Is continuous. Neuro: Level of Consciousness is awake, alert, obeys commands, Oriented to person, place, time, situation. Cardiovascular: Denies chest pain. Respiratory: Airway is patent Respiratory effort is even, unlabored, Respiratory pattern is regular, symmetrical. GI: No signs and/or symptoms were reported involving the gastrointestinal system. Derm: Skin is pink, warm \T\ dry. Musculoskeletal: Circulation, motion, and sensation intact. Range of motion: intact in all extremities. Historical: - Allergies: 06:04 No Known Allergies; tl2 - Home Meds: 06:04 atorvastatin 10 mg Oral tab once daily [Active]; lisinopril 10 mg Oral tab 1 tab once tl2 daily [Active]; metformin 1,000 mg Oral tab 1 tab 2 times per day [Active]; metoprolol tartrate 25 mg Oral tab 1 tab 2 times per day [Active]; aspirin 81 mg Oral chew 1 tab once daily [Active]; - PMHx: 06:04 CAD; Diabetes - NIDDM; Hypertension; tl2 - PSHx: 06:04 Heart stents; tl2 - Immunization history:: Adult Immunizations up to date. - Social history:: Smoking status: Patient/guardian denies using tobacco. - Ebola Screening: : No symptoms or risks identified at this time. Screenin:07 Abuse screen: Denies threats or abuse. Nutritional screening: No deficits noted. tl2 Tuberculosis screening: No symptoms or risk factors identified. Fall Risk None identified. Assessment: 07:15 General: Appears in no apparent distress. uncomfortable, obese, Behavior is calm, ae4 cooperative, Smells of cigarette smoke. Pain: Complains of pain in left knee. Neuro: Level of Consciousness is awake, alert, obeys commands, Oriented to person, place, time, situation, Appropriate for age. Cardiovascular: Patient's skin is warm and dry. Respiratory: Airway is patent Respiratory effort is even, unlabored, Respiratory pattern is regular, symmetrical. GI: No signs and/or symptoms were reported involving the gastrointestinal system. Abdomen is round obese. : No signs and/or symptoms were reported regarding the genitourinary system. EENT: No signs and/or symptoms were reported regarding the EENT system. Derm: No signs and/or symptoms reported regarding the dermatologic system. Skin is normal. Musculoskeletal: Reports pain in left knee Mild swelling to left knee. Vital Signs: 06:04 BP 140 / 67; Pulse 64; Resp 18; Temp 98.6(O); Pulse Ox 98% on R/A; Weight 99.79 kg; tl2 Height 5 ft. 6 in. (167.64 cm); Pain 7/10; 06:04 Body Mass Index 35.51 (99.79 kg, 167.64 cm) tl2 ED Course: 05:44 Patient arrived in ED. es 05:45 Michelle Barron MD is Private Physician. es 06:03 Triage completed. tl2 06:04 Arm band placed on right wrist. tl2 06:05 [facility] pm1 06:05 Pascual Arriola MD is Attending Physician. pm1 06:07 Patient has correct armband on for positive identification. Bed in low position. Call tl2 light in reach. Side rails up X 1. Adult w/ patient. 07:01 Knee Left 3 View XRAY In Process Unspecified. EDMS 08:11 Raphael Shanks, RN is Primary Nurse. ae4 08:16 No provider procedures requiring assistance completed. Patient did not have IV access ae4 during this emergency room visit. Administered Medications: No medications were administered Outcome: 07:50 Discharge ordered by MD. pm1 08:16 Discharged to home ambulatory, with significant other. ae4 08:16 Condition: stable 08:16 Discharge instructions given to patient, significant other, Instructed on discharge instructions, follow up and referral plans. medication usage, Demonstrated understanding of instructions, Prescriptions given X 2. 08:16 Patient left the ED. ae4 Signatures: Dispatcher [employer] EDMS Sheela Mo Patrick, NP CERAMIC WORKER pm1 Donita Hassan, RN RN tl2 Raphael Shanks, RN RN ae4
--- NOTE | 2019-11-13 08:02 | EDPHYS ---
Physician Documentation [facility] Name: Sal Edmonds Age: 64 yrs Sex: Male : 1955 Arrival Date: 11/13/2019 Time: 05:44 Bed 20 Private MD: Michelle Barron R ED Physician Pascual Arriola HPI: 11/13 06:14 This 64 yrs old Male presents to ER via Ambulatory with complaints of Left pm1 Knee Pain. 06:14 The patient presents with pain. The complaints affect the left knee. Context: resulted pm1 from an unknown cause, History of left knee surgery about 20 years ago, the patient can fully bear weight, the patient is able to ambulate. Onset: The symptoms/episode began/occurred 3 month(s) ago, and became worse 3 week(s) ago. Modifying factors: The symptoms are alleviated by unknown medication. Seen by his PCP 3 months ago for the same complaint and was prescribed a medication that helped with the pain. Associated signs and symptoms: Pertinent negatives calf tenderness, numbness, swelling, tingling, weakness, chest pain, shortness of breath. Treatment prior to arrival includes: no previous treatment. Severity of symptoms: in the emergency department the symptoms have improved. patient presenting with left knee pain that started three months ago that comes and goes. Sometimes 2 times per day and at night. Saw his PCP 3 months ago for the same complaint and was given PRN pain medication that appears to be effective. Patient has not seen any provider since and no imaging has been performed. History of left knee surgery about 20 years ago. Is not currently experiencing any pain. 06:14 Denies any fall, trauma, injury. pm1 Historical: - Allergies: 06:04 No Known Allergies; tl2 - Home Meds: 06:04 atorvastatin 10 mg Oral tab once daily [Active]; lisinopril 10 mg Oral tab 1 tab once tl2 daily [Active]; metformin 1,000 mg Oral tab 1 tab 2 times per day [Active]; metoprolol tartrate 25 mg Oral tab 1 tab 2 times per day [Active]; aspirin 81 mg Oral chew 1 tab once daily [Active]; - PMHx: 06:04 CAD; Diabetes - NIDDM; Hypertension; tl2 - PSHx: 06:04 Heart stents; tl2 - Immunization history:: Adult Immunizations up to date. - Social history:: Smoking status: Patient/guardian denies using tobacco. - Ebola Screening: : No symptoms or risks identified at this time. ROS: 06:14 Constitutional: Negative for fever, chills, and weight loss, Eyes: Negative for injury, pm1 pain, redness, and discharge, ENT: Negative for injury, pain, and discharge, Neck: Negative for injury, pain, and swelling, Cardiovascular: Negative for chest pain, palpitations, and edema, Respiratory: Negative for shortness of breath, cough, wheezing, and pleuritic chest pain, Abdomen/GI: Negative for abdominal pain, nausea, vomiting, diarrhea, and constipation, Back: Negative for injury and pain. 06:14 Skin: Negative for injury, rash, and discoloration, Neuro: Negative for headache, weakness, numbness, tingling, and seizure. 06:14 MS/extremity: Positive for pain, of the left knee, Negative for decreased range of motion, deformity, swelling. Exam: 06:14 Constitutional: This is a well developed, well nourished patient who is awake, alert, pm1 and in no acute distress. Head/Face: Normocephalic, atraumatic. Neck: Trachea midline, no thyromegaly or masses palpated, and no cervical lymphadenopathy. Supple, full range of motion without nuchal rigidity, or vertebral point tenderness. No Meningismus. Chest/axilla: Normal chest wall appearance and motion. Nontender with no deformity. No lesions are appreciated. Cardiovascular: Regular rate and rhythm with a normal S1 and S2. No gallops, murmurs, or rubs. Normal PMI, no JVD. No pulse deficits. Respiratory: Lungs have equal breath sounds bilaterally, clear to auscultation and percussion. No rales, rhonchi or wheezes noted. No increased work of breathing, no retractions or nasal flaring. Back: No spinal tenderness. No costovertebral tenderness. Full range of motion. Skin: Warm, dry with normal turgor. Normal color with no rashes, no lesions, and no evidence of cellulitis. 06:14 Musculoskeletal/extremity: Extremities: all appear grossly normal, with no appreciated pain with palpation, ROM: intact in all extremities, Circulation is intact in all extremities. Pulses: are normal with no appreciated deficits, Calf tenderness, is absent, Edema, is not appreciated, the left leg Sensation intact. DVT Exam: No signs of deep vein thrombosis. no pain, no swelling, no tenderness, no appreciated bluish discoloration, no erythema, no increased warmth, Calves: are non-tender. 06:14 Neuro: Orientation: is normal, Motor: is normal, moves all fours, Sensation: is normal, no obvious gross deficits. Vital Signs: 06:04 BP 140 / 67; Pulse 64; Resp 18; Temp 98.6(O); Pulse Ox 98% on R/A; Weight 99.79 kg; tl2 Height 5 ft. 6 in. (167.64 cm); Pain 7/10; 06:04 Body Mass Index 35.51 (99.79 kg, 167.64 cm) tl2 MDM: 06:05 Patient medically screened. pm1 06:15 Data reviewed: vital signs. Data interpreted: Pulse oximetry: on room air is 98 %. pm1 Interpretation: normal. 06:15 ED course: Refused pain medications in the ER because he is not experiencing any pain pm1 now. 06:15 Differential diagnosis: dislocation, closed fracture, tendonitis, DVT, arthritis. pm1 07:49 Counseling: I had a detailed discussion with the patient and/or guardian regarding: the pm1 historical points, exam findings, and any diagnostic results supporting the discharge/admit diagnosis, radiology results, the need for outpatient follow up, for definitive care, a orthopedic surgeon, to return to the emergency department if symptoms worsen or persist or if there are any questions or concerns that arise at home. 11/13 06:14 Order name: Knee Left 3 View XRAY pm1 Administered Medications: No medications were administered Disposition: 20:01 Co-signature as Attending Physician, Pascual Arriola MD I agree with the assessment and tw4 plan of care. Disposition: 11/13/19 07:50 Discharged to Home. Impression: Pain in left knee. - Condition is Stable. - Discharge Instructions: Elastic Bandage and RICE, Joint Pain, Knee Pain. - Prescriptions for Diclofenac Sodium 75 mg Oral Tablet, Delayed Release (E.C.) - take 1 tablet by ORAL route 2 times per day As needed; 30 tablet. Tramadol 50 mg Oral Tablet - take 1 tablet by ORAL route every 8 hours as needed; 12 tablet. - Medication Reconciliation Form, Thank You Letter, Antibiotic Education, Prescription Opioid Use, Work release form form. - Follow up: Emergency Department; When: As needed; Reason: Worsening of condition. Follow up: Private Physician; When: 2 - 3 days; Reason: Recheck today's complaints, Continuance of care, Re-evaluation by your physician. - Problem is new. - Symptoms have improved. Signatures: Dispatcher [employer] EDMS Danny Grayson, ROSEMARY CHAR FILTER TANK TENDER pm1 Donita Hassan, RN RN tl2 Pascual Arriola MD MD tw4 Raphael Shanks RN RN ae4 Corrections: (The following items were deleted from the chart) 08:16 07:50 11/13/2019 07:50 Discharged to Home. Impression: Pain in left knee. Condition is ae4 Stable. Discharge Instructions: Elastic Bandage and RICE, Joint Pain. Prescriptions for Diclofenac Sodium 75 mg Oral Tablet Sustained Release - take 1 tablet by ORAL route 2 times per day; 30 tablet, Tramadol 50 mg Oral Tablet - take 1 tablet by ORAL route every 8 hours as needed; 12 tablet. and Forms are Medication Reconciliation Form, Thank You Letter, Antibiotic Education, Prescription Opioid Use. Follow up: Emergency Department; When: As needed; Reason: Worsening of condition. Follow up: Private Physician; When: 2 - 3 days; Reason: Recheck today's complaints, Continuance of care, Re-evaluation by your physician. Problem is new. Symptoms have improved. pm1
[2019-11-13 08:30] VITALS: BP 140/67; TEMP 98.6; O2SAT 98
--- NOTE | 2019-11-13 09:36 | RAD REPORT ---
EXAM DESCRIPTION: RAD - Knee Left 3 View - 11/13/2019 7:00 am CLINICAL HISTORY: Left knee pain radiating distally into the leg COMPARISON: None. FINDINGS: No acute fracture changes are present. . Dense degenerative changes are present in the lat eral compartment but acute tibial plateau fracture cannot be confirmed. Large spurs are present at th e articular margins of the lateral compartment. Patient has large degenerative spurs along the articu lar margins the patella with patella femoral joint space narrowing present. Medial compartment is als o narrowed with large spurs.No significant joint effusion seen. Calcifications are present along the medial margin the distal femur. These are potentially Mar-Stieda lesions which are not acutely significant. Calcifications are present along the anterior joint line on the lateral view. No significant soft tissue finding. No foreign body. IMPRESSION: Very advanced tricompartment degenerative changes in the knee joint with no acute bone o r joint finding seen. Clinical concerns for internal derangement or occult bony injury could be further assessed with MR im aging.
== END 2019-11-13 08:16 | disposition home or self-care (01) ==
LOC: ER 05:42
DX: M25.562 Pain in left knee (principal); I10 Essential (primary) hypertension; E11.9 Type 2 diabetes mellitus without complications; Z79.82 Long term (current) use of aspirin; Z95.818 Presence of other cardiac implants and grafts
CPT/HCPCS: 99283

== ENCOUNTER 2022-06-21 06:22 | Emergency (ER) | payer BC ==
--- OUTSIDE RECORDS SUMMARY | 2022-06-21 06:25 | XMS REPORT | Continuity of Care Document ---
:1955 Author Organization [facility] t Address [address] [place] [address] Care Team Providers Name Role Phone Unavailable Unavailable Unavailable Problems This patient has no known problems. Allergies, Adverse Reactions, Alerts This patient has no known allergies or adverse reactions. Medications This patient has no known medications. Procedures This patient has no known procedures. Results Test Description Test Time Test Comments Results Result Comments Source HEMOGLOBIN A1c 2022-06-11 09:21:21 Test Item Value Reference Range Interpretation Comme nts HEMOGLOBIN A1c (test code = 7.6 % 4.2-5.6 H [employer] 55567) GUIDELINES FOR HGB A1C: PREDIABETES/INC REASED RISK . . . . . . . 5.7-6.4% DIAGNO SIS OF DIABETES . . . . . . . . . >=6.5% WITH CONFIRMATION OR APPROPRIATE SYM PTOMS NOTE: ASSAY MAY BE AFFECTED BY HEM OGLOBINOPATHIES (SICKLE CELL ANEMIA, S- C DISEASE, OTHERS) OR ARTIFICIALLY LO WERED BY DECREASED RED CELL SURVIVAL ( HEMOLYTIC ANEMIAS, BLOOD LOSS, ETC.). CO NSIDER ALTERNATE TESTING OR LABORATORY C ONSULTATION. LIPID [id number] 04:13:06 Test Item Value Reference Range Interpretation Comments CHOLESTEROL (test 112 MG/DL <200 code = 2210) TRIGLYCERIDES (test 82 MG/DL <150 code = 2232) HDL CHOLESTEROL (test 36 MG/DL >39 L code = 2220) CALC LDL CHOL (test 60 MG/DL <100 NOTE: C ALCULATED LDL code = 2237) IS BASED ON LEAH-GHOTRA METHOD WHICHINCLUDES ADJUSTABLE TRIGLYCERIDE:VL DL CHOLESTEROL RAT IO.THIS FACTOR VARIES B Y MEASURED TRIGLY CERIDE AND NON-HDLCHOL ESTEROL CONCENTRATIONS WITH INCREASED CALCU LATED LDL SEENIN HIGH ER TRIGLYCERIDE OR LOWER NON-HDL SPECIME NS. FOR MOREINFORMATION , SEE CLIENT ANNOUNCE MENT AT [email or web address] RISK RATIO LDL/HDL 1.67 RATIO <3.55 (test code = 2238) COMPREHENSIVE METABOLIC [id number] 04:13:06 Test Item Value Reference Range Interpretation Comments GLUCOSE (test code = 147 MG/DL 70-99 H 2216) BUN (test code = 10 MG/DL 8-23 2207) CREATININE (test 0.61 MG/DL 0.80-1.40 L code = 2214) eGFR (2020 CKD-EPI) 106 >60 (test code = 96385) ML/MIN/1.73 CALC BUN/CREAT (test 16 RATIO 6-28 code = 2235) SODIUM (test code = 140 MEQ/L [id number] 2534) POTASSIUM (test code 4.3 MEQ/L 3.5-5.4 = 2227) CHLORIDE (test code 103 MEQ/L 95-107 = 2214) CARBON DIOXIDE (test 24 MEQ/L 19-31 code = 220) CALCIUM (test code = 9.0 MG/DL 8.5-10.5 2208) PROTEIN, TOTAL (test 6.8 G/DL 6.1-8.3 code = 222) ALBUMIN (test code = 4.2 G/DL 3.5-5.2 2200) CALC GLOBULIN (test 2.6 G/DL 1.9-3.7 code = 2240) CALC A/G RATIO (test 1.6 RATIO 1.0-2.6 code = 2234) BILIRUBIN, TOTAL 0.5 MG/DL See_Comment [Automated message] (test code = 2207) [employer] which generated this result transmitted ref erence range: <=1.2. T he reference range was not used to int erpret this result as normal/abnormal . ALKALINE PHOSPHATASE 78 U/L 40-125 (test code = 220) AST (test code = 17 U/L 9-50 2217) ALT (test code = 19 U/L 5-50 UNLESS OTH ERWISE 2218) INDICATED, ALL TESTING PERFORM [facility], [place] [address] [place] [address] [facility] DIRECTOR: CHRISTI QUINTERO M.D. CLIA NUMBER [id number] CAP ACCREDITATION N O. [id number]
[2022-06-21] MEDS ORDERED: TRAMADOL HCL 50 MG TAB ONE (07:03)
[2022-06-21] MEDS ORDERED: predniSONE 20 MG TAB ONE (07:04)
--- NOTE | 2022-06-21 08:28 | RAD REPORT ---
EXAM DESCRIPTION: RAD - Ankle Right 3 View - 06/21/2022 7:24 am CLINICAL HISTORY: PAIN COMPARISON: No comparisons FINDINGS: Tibiotalar joint space is narrowed with small osteophytes compatible with osteoarthritis. Large plantar and tiny posterior calcaneal spur. No fracture seen.
--- NOTE | 2022-06-21 08:34 | RAD REPORT ---
EXAM DESCRIPTION: US - Extremity Venous Uni Ltd - 06/21/2022 8:05 am CLINICAL HISTORY: PAIN Leg swelling and edema. COMPARISON: No comparisons FINDINGS: Right lower extremity venous system was interrogated with Doppler technique. Normal flow, compressibility and augmentation was noted. There is no DVT present. IMPRESSION: No evidence of right lower extremity deep venous thrombosis.
--- NOTE | 2022-06-21 09:17 | ER ---
Nurse's Notes [facility] Name: Sal Edmonds Age: 67 yrs Sex: Male : 1955 Arrival Date: 06/21/2022 Time: 06:24 Bed 6 Private MD: Diagnosis: Other specified arthritis, ankle and foot-Right Presentation: 06/21 06:35 Chief complaint: Spouse and/or significant other states: He was at work yesterday and jb4 came home complaining of right foot pain. I tried putting ICE HOT on it and putting him in a brace and giving him Tylenol. Nothing has helped. 06:35 Coronavirus screen: At this time, the client does not indicate any symptoms associated marv with coronavirus-19. Ebola Screen: No symptoms or risks identified at this time. Initial Sepsis Screen: Does the patient meet any 2 criteria? No. Patient's initial sepsis screen is negative. Does the patient have a suspected source of infection? No. Patient's initial sepsis screen is negative. Risk Assessment: Do you want to hurt yourself or someone else? Patient reports no desire to harm self or others. Onset of symptoms was June 21, 2022. Transition of care: patient was not received from another setting of care. 06:35 Method Of Arrival: Ambulatory jb4 06:35 Acuity: CHEVY 4 jb4 Historical: - Allergies: 06:50 No Known Allergies; jb4 - PMHx: 06:50 CAD; Diabetes - NIDDM; Hypertension; jb4 - PSHx: 06:50 heart stents; jb4 - Immunization history:: Adult Immunizations up to date. - Social history:: Smoking status: Patient denies any tobacco usage or history of. - Family history:: not pertinent. - Hospitalizations: : No recent hospitalization is reported. Screenin:50 Abuse screen: Denies threats or abuse. Nutritional screening: No deficits noted. jb4 Tuberculosis screening: No symptoms or risk factors identified. Fall Risk None identified. Assessment: 06:50 General: Appears in no apparent distress. uncomfortable, Behavior is calm, cooperative, jb4 appropriate for age. Pain: Complains of pain in right lateral malleolus and right medial malleolus Pain does not radiate. Pain currently is 0 out of 10 on a pain scale. at worst was 8 out of 10 on a pain scale. Quality of pain is described as throbbing. Neuro: Level of Consciousness is awake, alert, obeys commands, Oriented to person, place, time, situation. Cardiovascular: Patient's skin is warm and dry. Respiratory: Airway is patent Respiratory effort is even, unlabored, Respiratory pattern is regular, symmetrical. Derm: Skin is intact, Skin is pink, warm \\T\\ dry. Musculoskeletal: Circulation, motion, and sensation intact. Range of motion: intact in all extremities. 08:06 Reassessment: Patient appears in no apparent distress at this time. Patient and/or vg1 family updated on plan of care and expected duration. Pain level reassessed. Patient is alert, oriented x 3, equal unlabored respirations, skin warm/dry/pink. Rates ankle pain 2/10, stated pain earlier was 6/10 and "the medicine seemed to help" Patient states feeling better. 09:07 Reassessment: Patient appears in no apparent distress at this time. No changes from vg1 previously documented assessment. Patient and/or family updated on plan of care and expected duration. Pain level reassessed. Patient is alert, oriented x 3, equal unlabored respirations, skin warm/dry/pink. Vital Signs: 06:35 BP 132 / 64; Pulse 60; Resp 16; Temp 98.2(O); Pulse Ox 94% on R/A; Weight 111.13 kg jb4 (R); Height 5 ft. 4 in. (162.56 cm) (R); 08:07 BP 133 / 77; Pulse 82; Resp 18; Pulse Ox 95% on R/A; vg1 09:00 BP 116 / 71; Pulse 59; Resp 16; Pulse Ox 99% on R/A; vg1 06:35 Body Mass Index 42.05 (111.13 kg, 162.56 cm) jb4 ED Course: 06:24 Patient arrived in ED. ja2 06:32 Michael Cai MD is Attending Physician. rn 06:47 Pedro Birmingham, JENNIFER is Primary Nurse. jb4 06:50 Triage completed. jb4 06:50 Arm band placed on right wrist. jb4 06:50 Patient has correct armband on for positive identification. Bed in low position. Call jb4 light in reach. Side rails up X 1. 07:12 Attending Physician role handed off by Michael Cai MD kdr 07:12 Ravindra Mcgovern MD is Attending Physician. kdr 07:25 XRAY Ankle RIGHT 3 view In Process Unspecified. EDMS 08:03 Patient moved back from radiology. vg1 08:04 Extremity Venous Uni Ltd US In Process Unspecified. EDMS 08:40 Primary Nurse role handed off by Pedro Birmingham RN eb 08:56 Susan Bell, JENNIFER is Primary Nurse. jg9 09:16 Michelle Barron MD is Referral Physician. kdr 09:29 No provider procedures requiring assistance completed. Patient did not have IV access vg1 during this emergency room visit. Administered Medications: 06:58 Drug: traMADol 50 mg Route: PO; ll3 08:23 Follow up: Response: No adverse reaction; Pain is decreased jg9 06:58 Drug: predniSONE 60 mg Route: PO; ll3 08:23 Follow up: Response: No adverse reaction jg9 Medication: 06:50 VIS not applicable for this client. jb4 Outcome: 09:16 Discharge ordered by . kdr 09:29 Discharged to home ambulatory, with family. vg1 09:29 Condition: good 09:29 Discharge instructions given to patient, family, Instructed on discharge instructions, follow up and referral plans. medication usage, Demonstrated understanding of instructions, follow-up care, medications, Prescriptions given X 2. 09:29 Patient left the ED. vg1 Signatures: Dispatcher [employer] [facility] Ravindra Mcgovern MD MD kdr Michael Cai MD MD rn Bryson, James, JENNIFER RN jb4 Chiquis Macias Victoria RN RN vg1 Kathy Swain Lynsea, RN RN ll3 Susan Bell RN RN jg9
--- NOTE | 2022-06-21 09:17 | EDPHYS ---
Physician Documentation [facility] Name: Sal Edmonds Age: 67 yrs Sex: Male : 1955 Arrival Date: 06/21/2022 Time: 06:24 Bed 6 Private MD: ED Physician Ravindra Mcgovern HPI: 06/21 06:51 This 67 yrs old Male presents to ER via Ambulatory with complaints of Foot rn Pain, Feet Swelling. 06:51 The patient presents with pain, that is acute. The complaints affect the right ankle. rn 06:52 Onset: The symptoms/episode began/occurred 3 day(s) ago. Modifying factors: The rn symptoms are alleviated by remaining still the symptoms are aggravated by weight bearing, movement. Associated signs and symptoms: Pertinent negatives: fever, warmth, weakness. Severity of symptoms: At their worst the symptoms were moderate, in the emergency department the symptoms are unchanged. The patient has not experienced similar symptoms in the past. The patient has not recently seen a physician. Pt reports right ankle pain, hurts with weight bearing, and using gas/brake pedals. Reports works at [employer] for 22 years, for 12 hours, 6 days/week. No direct trauma. No fever. . Historical: - Allergies: 06:50 No Known Allergies; jb4 - PMHx: 06:50 CAD; Diabetes - NIDDM; Hypertension; jb4 - PSHx: 06:50 heart stents; jb4 - Immunization history:: Adult Immunizations up to date. - Social history:: Smoking status: Patient denies any tobacco usage or history of. - Family history:: not pertinent. - Hospitalizations: : No recent hospitalization is reported. ROS: 06:52 Constitutional: Negative for fever, chills, and weight loss, Back: Negative for injury rn and pain, MS/Extremity: + right ankle pain Skin: Negative for injury, rash, and discoloration, Neuro: Negative for weakness, numbness, tingling Exam: 06:52 Constitutional: This is a well developed, well nourished patient who is awake, alert, rn and in no acute distress. Ambulatory to room. Cardiovascular: Regular rate and rhythm. No pulse deficits. MS/ Extremity: Pulses equal, no cyanosis. FROM right ankle with pain on active and passive dorsiflexion of ankle. NO discoloration. No open wounds. No erythema or warmth. Neuro: Awake and alert, GCS 15 Vital Signs: 06:35 BP 132 / 64; Pulse 60; Resp 16; Temp 98.2(O); Pulse Ox 94% on R/A; Weight 111.13 kg jb4 (R); Height 5 ft. 4 in. (162.56 cm) (R); 08:07 BP 133 / 77; Pulse 82; Resp 18; Pulse Ox 95% on R/A; vg1 09:00 BP 116 / 71; Pulse 59; Resp 16; Pulse Ox 99% on R/A; vg1 06:35 Body Mass Index 42.05 (111.13 kg, 162.56 cm) jb4 MDM: 06:32 Patient medically screened. rn 09:18 Data reviewed: vital signs, nurses notes, lab test result(s), radiologic studies. kdr Counseling: I had a detailed discussion with the patient and/or guardian regarding: the historical points, exam findings, and any diagnostic results supporting the discharge/admit diagnosis, lab results, radiology results, the need for outpatient follow up. ED course: Happy with the care provided and the plan for discharge and follow-up.. 06/21 06:50 Order name: Extremity Venous [employer] ; Complete Time: 09:11 rn 06/21 06:50 Order name: XRAY Ankle RIGHT 3 view; Complete Time: 08:31 rn Administered Medications: 06:58 Drug: traMADol 50 mg Route: PO; ll3 08:23 Follow up: Response: No adverse reaction; Pain is decreased jg9 06:58 Drug: predniSONE 60 mg Route: PO; ll3 08:23 Follow up: Response: No adverse reaction jg9 Disposition Summary: 06/21/22 09:16 Discharge Ordered Location: Home kdr Problem: new kdr Symptoms: have improved kdr Condition: Stable kdr Diagnosis - Other specified arthritis, ankle and foot - Right kdr Followup: kdr - With: Private Physician - When: 2 - 3 days - Reason: If symptoms return, Further diagnostic work-up, Recheck today's complaints, Continuance of care, Re-evaluation by your physician Followup: kdr - With: Michelle Barron MD - When: 2 - 3 days - Reason: If symptoms return, Further diagnostic work-up, Recheck today's complaints, Continuance of care, Re-evaluation by your physician Discharge Instructions: - Discharge Summary Sheet kdr - Arthritis, [id number] kdr Forms: - Medication Reconciliation Form kdr - Thank You Letter kdr - Work release form vg1 Prescriptions: - Ibuprofen 600 mg Oral Tablet - take 1 tablet by ORAL route every 6 hours As needed take with food; 15 tablet; kdr Refills: 0, Product Selection Permitted - Medrol (Stan) 4 mg Oral Tablets, Dose Pack - take 1 tablet by ORAL route as directed - follow package instructions; 1 kdr packet; Refills: 0, Product Selection Permitted Signatures: Dispatcher [employer] EDMS Ravindra Mcgovern MD MD kdr Michael Cai MD MD rn Pedro Birmingham RN RN jb4 Greg Murillo RN RN ll3 Susan Bell RN jg9 Corrections: (The following items were deleted from the chart) 06:54 06:52 Constitutional: Negative for fever, chills, and weight loss, MS/Extremity: + rn right ankle pain Skin: Negative for injury, rash, and discoloration, Neuro: Negative for weakness, numbness, tingling rn
[2022-06-21 09:42] VITALS: TEMP 98.2
[2022-06-21 09:49] VITALS: BP 116/71; O2SAT 99
== END 2022-06-21 09:29 | disposition home or self-care (01) ==
LOC: ER 06:22
DX: M13.871 Other specified arthritis, right ankle and foot (principal); I10 Essential (primary) hypertension; E11.9 Type 2 diabetes mellitus without complications
CPT/HCPCS: 73610; 93971; 99283; J7512